=== PATIENT | male | born 1970 | race Caucasian/White ===

== ENCOUNTER 2016-10-09 09:09 | Emergency (ER) | payer BC ==
[2016-10-09] MEDS ORDERED: HYDROmorphone 1 MG/ML Syringe IVPUSH ONE (09:19)
[2016-10-09] MEDS ORDERED: Metoclopramide 10 MG/2 ML SDV IVPUSH ONE (09:19)
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
[2016-10-09] MEDS ORDERED: Sodium Chloride 0.9% 1,000 ML IV SCH (09:30)
[2016-10-09] MEDS ORDERED: Diphtheria,Pertussis(Acell),Tetanus Vaccine 0.5 ML SDV inactive IM ONE (10:47)
[2016-10-09] MEDS ORDERED: Lidocaine 1% 10 ML MDV INJECT ONE (10:48)
--- NOTE | 2016-10-09 11:01 | CT ---
CT facial bones Technique: Multiple axial sections through the facial bones were obtained. Reconstructed axial and coronal images were reviewed. Findings: Hypoplastic right maxillary sinus is seen which is opacified. This is most likely chronic. Minimal nasal bone deformity is seen within the tip of the nasal bone which could represent minimal acute versus old fracture. Left mandibular condyle is displaced anteriorly from the TMJ as compared to the opposite side. This may relate to a chronic meniscal injury if patient has no acute symptoms of partial unilateral dislocation. No additional facial bone abnormality is seen. Impression: 1. Minimal abnormality within the tip of the nasal bone as noted above. 2. 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 3. Anteriorly placed mandibular condyle on the left side which could relate to unilateral partial dislocation versus chronic malalignment from meniscal injury. Please correlate with the patient's symptoms. 4. No additional facial bone abnormality is seen. Diagnostic code #3
[2016-10-09] MEDS ORDERED: Lidocaine 1% 50 ML MDV ONE (11:08)
[2016-10-09 17:27] VITALS: BP 129/96
== END 2016-10-09 13:45 | disposition home or self-care (01) ==
LOC: JD.ED 09:09
PROC: 0CQ1XZZ Repair Lower Lip, External Approach (ICD-10-PCS; principal; 2016-10-09)
PROC: 3E0234Z Introduction of Serum, Toxoid and Vaccine into Muscle, Percutaneous Approach (ICD-10-PCS; 2016-10-09)
DX: S02.2XXA Fracture of nasal bones, initial encounter for closed fracture (principal); S01.511A Laceration without foreign body of lip, initial encounter; S01.512A Laceration without foreign body of oral cavity, initial encounter; W37.8XXA Explosion and rupture of other pressurized tire, pipe or hose, initial encounter; Y92.69 Other specified industrial and construction area as the place of occurrence of the external cause; Y99.0 Civilian activity done for income or pay; Z23 Encounter for immunization
CPT/HCPCS: 12052; 70486; 90471; 96361; 96374; 96375; 99284; J1170; J2765; J7040; 12013; 40650; 90715

== ENCOUNTER 2016-10-17 10:36 | Emergency (ER) | payer BC ==
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
== END 2016-10-17 11:00 | disposition home or self-care (01) ==
LOC: JD.ED 10:36